=== PATIENT | female | born 1980 | race Caucasian/White ===

== ENCOUNTER 2022-01-28 12:32 | Emergency (ER) | payer SELFPAY ==
[~2022-01-28] VITALS: Ht 154.9 cm; Wt 109.0 kg
[2022-01-28 12:50] VITALS: BP 151/97
[2022-01-28] MEDS ORDERED: VISCOUS LIDOCAINE 2% 15 ML UDC PO STA (13:37)
[2022-01-28] MEDS ORDERED: MAGNESIUM/ALUMINUM HYDROXIDE/SIMETHICONE 30ML UDC PO STA (13:37)
[2022-01-28] MEDS ORDERED: PANTOPRAZOLE 40MG DR TABLET PO ONE (13:45)
[2022-01-28 14:45] LABS: BASOPHILS % 1.1 % (0.0-2.0); EOSINOPHILS % 1.8 % (0.0-5.0); HEMATOCRIT. 44.1 % (36.0-48.0); HEMOGLOBIN. 14.9 g/dL (12.0-16.0); LYMPHOCYTES % 23.6 % (20.0-50.0); MEAN CORPUSCULAR HEMOGLOBIN 28.6 pg (28.0-32.0); MEAN CORPUSCULAR VOLUME 84.6 fL (81.0-99.0); MEAN PLATELET VOLUME 7.3 fl (7.4-10.4); MONOCYTES % 6.5 % (2.0-8.0); PLATELET 452 x1000/uL (130-400); RED BLOOD CELL COUNT 5.21 mill/uL (4.2-5.4); RED CELL DISTRIBUTION WIDTH 13.5 % (11.6-14.6)
[2022-01-28 15:01] LABS: CHLORIDE 102 mEq/L (98-107)
[2022-01-28 15:06] LABS: HCG SCREEN NEGATIVE
[2022-01-28] MEDS ORDERED: PROT40 MT (15:28)
[2022-01-28] MEDS ORDERED: METO-293 MT (15:28)
[2022-01-28 17:03] LABS: HEPATITIS B SURFACE ANTIGEN NEGATIVE
== END 2022-01-28 16:10 | disposition home or self-care (01) ==
LOC: ER 12:32
DX: K29.70 Gastritis, unspecified, without bleeding (principal); K75.9 Inflammatory liver disease, unspecified; I10 Essential (primary) hypertension
CPT/HCPCS: 36415; 76705; 80053; 84703; 85025; 86705; 86709; 86803; 87340; 99284

== ENCOUNTER 2024-11-07 20:34 | Emergency (ER) | payer SELFPAY ==
[~2024-11-07] VITALS: Ht 162.6 cm; Wt 86.0 kg
[~2024-11-07 20:34] MED LIST: METO-293 MT; PROT40 MT
[2024-11-07 20:35] VITALS: O2SAT 98
[2024-11-07 20:58] VITALS: TEMP 36.6; O2SAT 100
[2024-11-07] MEDS ORDERED: IBUP-2029 MT (22:23)
[2024-11-07] MEDS ORDERED: CYCL10TA21 MT (22:23)
[2024-11-07 23:03] VITALS: BP 157/103; PULSE 84; RESP 18
[2024-11-07] MEDS: ACETAMINOPHEN 325MG TABLET PO ONE (23:03)
[2024-11-07] MEDS: IBUPROFEN 600MG TABLET PO ONE (23:03)
== END 2024-11-07 23:05 | disposition home or self-care (01) ==
LOC: ER 20:40
DX: S80.01XA Contusion of right knee, initial encounter (principal); Z79.899 Other long term (current) drug therapy; W19.XXXA Unspecified fall, initial encounter; Y93.89 Activity, other specified; Y92.89 Other specified places as the place of occurrence of the external cause; Y99.8 Other external cause status
CPT/HCPCS: 73070; 73090; 73560; 99284